=== PATIENT | male | born 1985 | race African-American/Black ===

== ENCOUNTER 2019-06-15 15:18 | Emergency (ER) | payer OTHER ==
[2011-10-22 16:17] VITALS: BP 150/89
[2019-06-15] MEDS ORDERED: FLUORESCEIN SODIUM 1 MG/WRAP ONE (15:56)
[2019-06-15] MEDS ORDERED: TETRACAINE HCL 0.5% 4ML OPTH ONE (15:56)
[2019-06-15] MEDS ORDERED: HYDROCODONE/APAP 10/325 TAB ONE (16:14)
[2019-06-15] MEDS ORDERED: TETANUS & DIPHTHERIA TOX,ADULT 0.5 ML VIAL ONE (16:15)
--- NOTE | 2019-06-15 16:15 | ER ---
Nurse's Notes [facility] Name: Pio Avila Age: 34 yrs Sex: Male : 1985 Arrival Date: 06/15/2019 Time: 15:24 Bed 8 Private MD: Diagnosis: Injury of conjunctiva and corneal abrasion without foreign body Presentation: 06/15 15:24 Presenting complaint: Patient states: i was helping my friend on his car and the bolt tw2 got stuck in the car, i was under the car and a thick bolt, it happened last night, it was late enough that i thought i could just put a cold compress on it , it is now swollen and my eye red. Transition of care: patient was not received from another setting of care. Mechanism of Injury: "the bolt hit my RIGHT eye". The patient denies any loss of vision. Onset of symptoms was June 15, 2019. Risk Assessment: Do you want to hurt yourself or someone else? Patient reports no desire to harm self or others. Initial Sepsis Screen: Does the patient meet any 2 criteria? No. Patient's initial sepsis screen is negative. Does the patient have a suspected source of infection? No. Patient's initial sepsis screen is negative. Care prior to arrival: None. 15:24 Method Of Arrival: Ambulatory tw2 15:24 Acuity: NAVIN 4 tw2 Triage Assessment: 15:27 General: Appears in no apparent distress. Behavior is calm, cooperative, appropriate tw2 for age. Pain: Complains of pain in right eye. EENT: Reports pain in right eye photophobia and my eye is draining . Historical: - Allergies: 15:28 No Known Allergies; tw2 - Home Meds: 15:28 None [Active]; tw2 - PMHx: 15:30 PE; tw2 - PSHx: 15:28 None; tw2 - Immunization history:: Adult Immunizations. - Coronavirus screen:: The patient has NOT traveled to [place], [place], or [place] in the past 14 days. - Social history:: Smoking status: . - Ebola Screening: : Patient denies travel to an Ebola-affected area in the 21 days before illness onset. Screenin:50 Abuse screen: Denies threats or abuse. Nutritional screening: No deficits noted. em Tuberculosis screening: No symptoms or risk factors identified. Fall Risk None identified. Assessment: 16:00 General: Appears in no apparent distress. comfortable, Behavior is calm, cooperative, em Denies fever. Pain: Complains of pain in right eye Pain currently is 7 out of 10 on a pain scale. Pain began 1 day ago. Neuro: Level of Consciousness is awake, alert, obeys commands, Oriented to person, place, time, situation, Appropriate for age. Cardiovascular: Capillary refill < 3 seconds Patient's skin is warm and dry. Respiratory: Airway is patent Respiratory effort is even, unlabored, Respiratory pattern is regular, symmetrical. EENT: Eyes are tearing on right eye Sclera/Cornea are reddened in outer aspect of conjuctiva of right eye. Derm: Skin is intact, is healthy with good turgor, Skin is pink, warm \\T\\ dry. Musculoskeletal: Capillary refill < 3 seconds, Range of motion: intact in all extremities. Vital Signs: 15:27 BP 125 / 84; Pulse 110; Resp 18; Temp 98.3(O); Pulse Ox 100% on R/A; Weight 72.57 kg tw2 (R); Height 5 ft. 10 in. (177.80 cm); Pain 7/10; 16:29 BP 118 / 78; Pulse 98; Resp 20; Pulse Ox 99% on R/A; em 15:27 Body Mass Index 22.96 (72.57 kg, 177.80 cm) tw2 Visual Acuity: 16:02 Left Eye Visual acuity 20/20, ; Right Eye Visual acuity 20/40, ; Both Eyes Visual em acuity 20/30; Without Lenses; ED Course: 15:24 Patient arrived in ED. mr 15:27 Triage completed. tw2 15:27 Arm band placed on. tw2 15:43 [facility]C [facility] la1 15:43 Ricco Melgar MD is Attending Physician. la1 15:45 Rome Cardoso, DOROTHY is Primary Nurse. em 16:00 Patient has correct armband on for positive identification. Bed in low position. Call em light in reach. Adult w/ patient. 16:15 Assist provider with eye exam of right eye. using fluorescein stain, Performed by Joe MAN Patient tolerated well. 16:27 Patient did not have IV access during this emergency room visit. em Administered Medications: 16:01 Drug: Tetracaine Drops 0.5 % 1 drops Route: Ophthalmic; Site: right eye; em 16:16 Follow up: Response: No adverse reaction; Pain is decreased em 16:01 Drug: Fluorescein Strip 1 strip Route: Ophthalmic; Site: right eye; em 16:16 Follow up: Response: No adverse reaction em 16:17 Drug: Tetanus-Diphtheria Toxoid Adult 0.5 ml {[employer]otive [employer] Interpreter: [employer]. Exp: em 04/07/2021. Lot #: [id number]. } Route: IM; Site: left deltoid; 16:28 Follow up: Response: No adverse reaction em 16:17 Drug: [place] 10 mg-325 mg 1 tabs Route: PO; em 16:28 Follow up: Response: No adverse reaction em Outcome: 16:14 Discharge ordered by . laJuarez 16:27 Discharged to home ambulatory, with family. em 16:27 Discharge instructions given to patient, family, Instructed on discharge instructions, follow up and referral plans. medication usage, Demonstrated understanding of instructions, follow-up care, medications, Prescriptions given X 1. 16:27 Condition: good em 16:30 Patient left the ED. em Signatures: Vi Walls WalkerRome, RN RN em Joe Morales, STATISTICAL CLERK ADVERTISING-C STATISTICAL CLERK ADVERTISING-[facility] Ying Gant RN RN tw2 Corrections: (The following items were deleted from the chart) 15:30 15:28 PMHx: None; tw2 tw2
--- NOTE | 2019-06-15 16:16 | EDPHYS ---
Physician Documentation [facility] Name: Pio Avila Age: 34 yrs Sex: Male : 1985 Arrival Date: 06/15/2019 Time: 15:24 Bed 8 Private MD: ED Physician Ricco Melgar HPI: 06/15 16:20 This 34 yrs old Black Male presents to ER via Ambulatory with complaints of Eye Injury. la1 16:20 The patient sustained an abrasion, to the right eye. Onset: The symptoms/episode la1 began/occurred last night. Duration: the symptoms are continuous. Aggravated by closing eye, light, opening eye, Alleviated by nothing. Associated signs and symptoms: Pertinent negatives: chills, dizziness, ear ache, fever, headache, runny nose. Patient does not utilize any form of vision correction. Severity of symptoms: At their worst the symptoms were mild in the emergency department the symptoms have improved. The patient has not experienced similar symptoms in the past. pt reports he was working on a car and a bolt fell hitting his right eye. . Historical: - Allergies: 15:28 No Known Allergies; tw2 - Home Meds: 15:28 None [Active]; tw2 - PMHx: 15:30 PE; tw2 - PSHx: 15:28 None; tw2 - Immunization history:: Adult Immunizations. - Coronavirus screen:: The patient has NOT traveled to [place], [place], or [place] in the past 14 days. - Social history:: Smoking status: . - Ebola Screening: : Patient denies travel to an Ebola-affected area in the 21 days before illness onset. ROS: 16:21 Constitutional: Negative for fever, chills, and weight loss. la1 16:21 ENT: Negative for injury, pain, and discharge, Neck: Negative for injury, pain, and swelling, Cardiovascular: Negative for chest pain, palpitations, and edema, Respiratory: Negative for shortness of breath, cough, wheezing, and pleuritic chest pain, Abdomen/GI: Negative for abdominal pain, nausea, vomiting, diarrhea, and constipation, Back: Negative for injury and pain, : Negative for injury, bleeding, discharge, and swelling, MS/Extremity: Negative for injury and deformity, Neuro: Negative for headache, weakness, numbness, tingling, and seizure. 16:21 Eyes: Positive for foreign body sensation, pain, photophobia, redness, tearing, of the outer aspect of conjuctiva of right eye. Exam: 16:22 Visual Acuity: Visual acuity is within normal limits. la1 16:22 Constitutional: This is a well developed, well nourished patient who is awake, alert, and in no acute distress. Head/Face: Normocephalic, atraumatic. 16:22 Chest/axilla: Normal chest wall appearance and motion. Nontender with no deformity. No lesions are appreciated. Cardiovascular: No pulse deficits. Respiratory: No increased work of breathing Abdomen/GI: No distension Skin: Warm, dry with normal turgor. Normal color with no rashes, no lesions, and no evidence of cellulitis. MS/ Extremity: Pulses equal, no cyanosis. Neurovascular intact. Full, normal range of motion. Neuro: Awake and alert, GCS 15, oriented to person, place, time, and situation. Normal gait. 16:22 Eyes: Periorbital structures: appear normal, Pupils: equal, round, and reactive to light and accomodation, Extraocular movements: intact throughout, Conjunctiva: subconjunctival hemorrhage(s), seen in the right eye, at 11 o'clock, tearing noted, in right eye, Corneas: abrasion, that is moderate sized, on the right, at 11 o'clock, foreign body, is not appreciated, a fluorescein strip employed to appreciate the findings, Sclera: no appreciated abnormality, Lids and lashes: appear normal, Visual knox: are intact, Examination of the other eye reveals no obvious gross abnormality. Vital Signs: 15:27 BP 125 / 84; Pulse 110; Resp 18; Temp 98.3(O); Pulse Ox 100% on R/A; Weight 72.57 kg tw2 (R); Height 5 ft. 10 in. (177.80 cm); Pain 7/10; 16:29 BP 118 / 78; Pulse 98; Resp 20; Pulse Ox 99% on R/A; em 15:27 Body Mass Index 22.96 (72.57 kg, 177.80 cm) tw2 Visual Acuity: 16:02 Left Eye Visual acuity 20/20, ; Right Eye Visual acuity 20/40, ; Both Eyes Visual em acuity 20/30; Without Lenses; Procedures: 16:12 Eye Exam: Tetracaine, fluorescein strip applied, pt tolerated well, revealed a moderate la1 corneal abrasion superior and lateral to the iris at about 10-11 o'clock. Visual acuity grossly intact. MDM: 16:11 Patient medically screened. la1 16:11 Data reviewed: vital signs, nurses notes, I have discussed the patient's la1 presentation/case with the attending Emergency Department Physician; and as a result, I will discharge patient. Data interpreted: Pulse oximetry: on room air is 100 %. Interpretation: normal. Counseling: I had a detailed discussion with the patient and/or guardian regarding: the historical points, exam findings, and any diagnostic results supporting the discharge/admit diagnosis, lab results, the need for outpatient follow up, an opthalmologist. Medication response: tetracaine. Response to treatment: the patient's symptoms have markedly improved after treatment. 02 15:50 Order name: Fluoresene Opth strip; Complete Time: 16:01 la1 02 15:50 Order name: Eye Tray; Complete Time: 16:01 la1 02 15:50 Order name: Visual Acuity; Complete Time: 16:01 la1 Administered Medications: 16:01 Drug: Tetracaine Drops 0.5 % 1 drops Route: Ophthalmic; Site: right eye; em 16:16 Follow up: Response: No adverse reaction; Pain is decreased em 16:01 Drug: Fluorescein Strip 1 strip Route: Ophthalmic; Site: right eye; em 16:16 Follow up: Response: No adverse reaction em 16:17 Drug: Tetanus-Diphtheria Toxoid Adult 0.5 ml {[employer]: [employer]. Exp: em 04/07/2021. Lot #: [id number]. } Route: IM; Site: left deltoid; 16:28 Follow up: Response: No adverse reaction em 16:17 Drug: [place] 10 mg-325 mg 1 tabs Route: PO; em 16:28 Follow up: Response: No adverse reaction em Disposition: 16:34 Co-signature as Attending Physician, Ricco Melgar MD. rn Disposition: 06/15/19 16:14 Discharged to Home. Impression: Injury of conjunctiva and corneal abrasion without foreign body. - Condition is Stable. - Discharge Instructions: Corneal Abrasion, How to Use Eye Drops and Eye Ointments. - Prescriptions for Erythromycin 5 mg/gram (0.5 %) Ophthalmic Ointment - apply 1 centimeter by OPHTHALMIC route 2-3 times daily for 7 days; 1 tube. - Work release form, Medication Reconciliation Form, Thank You Letter, Antibiotic Education form. - Follow up: Private Physician; When: 2 - 3 days; Reason: Recheck today's complaints, Re-evaluation by your physician. - Problem is new. - Symptoms have improved. Signatures: Rome Cardoso RN Ricco Vital MD MD rn Attema, Lee, WINDOWS APPLICATION DEVELOPER-C WINDOWS APPLICATION DEVELOPER-[employer]1 Ying Gatn RN RN tw2 Corrections: (The following items were deleted from the chart) 15:30 15:28 PMHx: None; tw2 tw2 16:30 16:14 06/15/2019 16:14 Discharged to Home. Impression: Injury of conjunctiva and em corneal abrasion without foreign body. Condition is Stable. Forms are Medication Reconciliation Form, Thank You Letter, Antibiotic Education, Prescription Opioid Use. Follow up: Private Physician; When: 2 - 3 days; Reason: Recheck today's complaints, Re-evaluation by your physician. Problem is new. Symptoms have improved. la1
== END 2019-06-15 16:30 | disposition home or self-care (01) ==
LOC: ER 15:18
DX: S05.01XA Injury of conjunctiva and corneal abrasion without foreign body, right eye, initial encounter (principal); W20.8XXA Other cause of strike by thrown, projected or falling object, initial encounter; Y93.89 Activity, other specified; Y92.9 Unspecified place or not applicable; Z23 Encounter for immunization
CPT/HCPCS: 90471; 90714; 99283